=== PATIENT | female | born 1995 | race Caucasian/White ===

== ENCOUNTER 2024-07-05 09:47 | Outpatient (CLI) | payer BC, SELFPAY ==
--- NOTE | ~2024-07-05 | US_ITS ---
Pelvic ultrasound. Clinical History: First trimester , amenorrhea, establish dates and viability Technique: Realtime transabdominal scanning of the pelvis was performed. Color flow Doppler and Doppl er spectral analysis were performed. Findings: The uterus is anteverted, and contains an intrauterine gestation. Kremmling-rump length of 3.5 cm corresponds to an estimated gestational age of 10 weeks 3 days. Yolk sac present. heart rate is 163 bpm. The right ovary measures 3.7 x 2.0 x 2.7 cm. No significant right ovarian or adnexal mass is seen. The left ovary measures 3.1 x 1.8 x 2.9 cm. No significant left ovarian or adnexal mass is seen. There is no evidence of free fluid in the cul de sac. Impression: Live intrauterine gestation, with estimated gestational age of 10 weeks 3 days. heart rate is 1 63 bpm. Sonographic GURJIT is 01/29/2025. Reviewed, dictated and finalized at [facility]. Impression: Live intrauterine gestation, with estimated gestational age of 10 weeks 3 days. heart rate is 163 bpm. Sonographic GURJIT is 01/29/2025.
== END 2024-07-05 09:48 | disposition home or self-care (01) ==
PROVIDERS: PCP Nurse Practitioner Obstetrics & Gynecology; Visit Provider Nurse Practitioner Obstetrics & Gynecology
DX: N91.2 Amenorrhea, unspecified (principal)
CPT/HCPCS: 76801

== ENCOUNTER 2024-07-14 09:24 | Emergency (ER) | payer BC, SELFPAY ==
[2024-07-14 09:36] VITALS: BP 99/68; PULSE 69; RESP 17; TEMP 36.1; O2SAT 100
--- NOTE | 2024-07-14 09:49 | ED.URI ---
HPI - URI/Sore Throat General Chief Complaint: Upper Respiratory Infection Stated Complaint: sinus pressure Time Seen by Provider: 07/14/24 09:49 Source: patient Mode of arrival: ambulatory Limitations: no limitations History of Present Illness HPI Narrative: 29-year-old female presents with complaint nasal congestion, sinus pressure, postnasal drainage for 1 week. Afebrile. Patient is approximately 12 weeks . Unsure of what zsjl-yjq-hyccsda medication she can take to treat symptoms. No chest pain or shortness of breath. All systems reviewed and negative except as noted above. Related Data Home Medications ?Medication ?Instructions ?Recorded ?Confirmed ?Last Taken ?Type docosahexaenoic acid 200 mg mg PO 06/30/24 06/30/24 Unknown History capsule ( DHA) Allergies Allergy/AdvReac Type Severity Reaction Status Date / Time No Known Allergies Allergy Verified 07/14/24 09:30 Review of Systems Review of Systems: CONSTITUTIONAL: Denies fever, chills, or sweats. EYES: Denies visual changes, redness, or discharge. ENT: reports rhinorrhea, congestion, sinus pressure. Denies sore throat, or otalgia. CARDIOVASCULAR: Denies chest pain, palpitations, or edema. RESPIRATORY: Denies cough or dyspnea. GASTROINTESTINAL: Denies abdominal pain, nausea, vomiting, or diarrhea. GENITOURINARY: Denies dysuria or hematuria. SKIN: Denies rash or itching. MUSCULOSKELETAL: Denies back pain, joint pain, or myalgia. NEUROLOGIC: Denies headache, numbness, or weakness. PSYCHIATRIC: Denies anxiety or depression. All other systems reviewed are negative, except as documented in HPI. PMFSH Surgical History Surgical History Hx of rotator cuff surgery Hx of section Family History Family History Mother Hypertension Father Diabetes mellitus Grandparent Diabetes mellitus Heart problem Social History Social History Smoking status: Never smoker Alcohol intake: never Substance use: never Comments At time of signature, agree with nursing past medical, surgical, social and family history. There is no relevant family history pertinent to the presenting complaint. Exam Narrative: GENERAL: This is a well-nourished, well-developed patient, in no apparent distress. HEAD: normocephalic, atraumatic. EYES: PERRL. Sclera clear/white. Vision is grossly intact. EARS: External ears normal, auditory canals clear and without drainage, TMs normal without perforation. Hearing grossly intact. NOSE: External nose normal with congestion, purulent nasal drainage, erythema and swelling to bilateral nares. Maxillary sinus tenderness on palpation bilaterally. THROAT: Mucous membranes moist, Erythema with postnasal drainage. No swelling or exudates. NECK: Neck supple, non-tender without lymphadenopathy, masses or thyromegaly. CARDIOVASCULAR: Regular rate and rhythm without murmurs, gallops, or rubs. RESPIRATORY: Clear to auscultation. Breath sounds equal bilaterally. No wheezes, rales, or rhonchi. SKIN: warm, Dry, intact with no suspicious lesions or rash, good texture and turgor. NEURO: awake, alert, and oriented to person, place and time. There were no obvious focal neurologic abnormalities. EXTREMITIES: No joint tenderness, effusion, or edema noted. Course Course Level of Care: Express Care Visit Vital Signs Vital signs: Vital Signs Temperature 36.1 C L 07/14/24 09:36 Pulse Rate 69 07/14/24 09:36 Respiratory Rate 17 07/14/24 09:36 Blood Pressure 99/68 L 07/14/24 09:36 Pulse Oximetry 100 07/14/24 09:36 Oxygen Delivery Room Air 07/14/24 09:36 Temperature 36.1 C L 07/14/24 09:36 Pulse Rate 69 07/14/24 09:36 Respiratory Rate 17 07/14/24 09:36 Blood Pressure 99/68 L 07/14/24 09:36 Pulse Oximetry 100 07/14/24 09:36 Oxygen Delivery Room Air 07/14/24 09:36 Reviewed MDM - URI/Sore Throat MDM Narrative Medical decision making narrative: negative COVID and influenza test. Patient is alert, nontoxic. Lungs clear to auscultation. Twelve weeks , no complaints today. Will treat for bacterial sinusitis with amoxicillin. Discussed jpcw-mwh-qlhcqxd medications to treat symptoms That are safe with . Please be advised this is a medical document. It is intended for kpuo-uo-ugpl communication. It is written in medical language and may contain unfamiliar abbreviations or verbiage. Medical documents are intended to carry relevant information, facts as evident, and the clinical opinion of the practitioner at the time of the encounter. This report may have been done utilizing a voice recognition system. Attempts have been made to correct errors. However, there may be uncorrected grammatical, spelling, and recognition errors present. The file time of this note does not necessarily represent the time of service. Discharge Plan Discharge Clinical Impression: Acute bacterial sinusitis Patient Disposition: Home, Self-Care Condition: Stable Instructions: Antibiotic Form, Sinusitis (ED) Additional Instructions: your COVID and influenza test was negative today. Take antibiotic as prescribed until gone. Take qxij-xuf-culgqnx Claritin and Flonase and use as directed on packaging. May take knzs-lvi-uojtrzb Sudafed as long as blood pressure has been stable at OB appointments. Take Sudafed as directed on packaging. Drink at least 64 oz of water a day. Place cool mist humidifier in bedroom where the sleep. See your doctor if symptoms are not improving. Patient Language: Serbian Prescriptions: New amoxicillin 875 mg tablet 875 mg PO Q12H 7 Days Qty: 14 0RF No Action DHA 200 mg capsule PO Follow-up/Referrals: PHYSICIAN,MEDICAL OFFICE CLERK [Primary Care Provider] - Time of Disposition: 09:59
[2024-07-14 10:01] LABS: EDCOVIDSCREEN Negative (Negative); EDINFLUASCREEN Negative (Negative); EDINFLUBSCREEN Negative (Negative)
== END 2024-07-14 10:05 | disposition home or self-care (01) ==
PROVIDERS: Emergency Provider Nurse Practitioner Family; Referring Provider Emergency Medicine
DX: O99.511 Diseases of the respiratory system complicating pregnancy, first trimester (principal); Z3A.12 12 weeks gestation of pregnancy; J01.90 Acute sinusitis, unspecified; Z20.822 Contact with and (suspected) exposure to COVID-19
CPT/HCPCS: 87426; 87804; 99213; G0463

== ENCOUNTER 2024-07-28 13:38 | Outpatient (CLI) | payer BC, SELFPAY ==
[2024-07-28 14:28] LABS: Hemoglobin 12.5 g/dL (12.0-15.0); Mean Corpuscular HGB Conc 33.8 g/dl (32-36); Mean Corpuscular Hemoglobin 30.6 pg (26-34); Mean Corpuscular Volume 90.5 fl (80-100); Mean Platelet Volume 8.7 fl (7.4-10.4); Platelet Count Result 290 k/mm3 (150-375); Red Blood Count 4.09 M/mm3 (4.2-5.4); Red Cell Distribution Width 12.7 % (11.5-14.5)
[2024-07-28 14:54] LABS: Add Urine Microscopic? YES; Appearance Urine Clear (Clear); Bacteria Urine None Seen /hpf; Bilirubin Urine Negative (Negative); Blood Urine Negative (Negative); Color Urine Yellow (Yellow); Glucose Urine UA Negative (Negative); Ketones Urine Negative (Negative); Leukocyte Esterase Ur 1+ LEU/UL (Negative); Need Manual Microscopic Reviewed; Nitrate Urine Negative (Negative); Non Pathogenic Casts 0-2; Protein Urine Negative (Negative); RBC Urine 0-2 /hpf (0-2); Specific Grav Ur 1.009 (1.001-1.035); Squamous Epithelial Cell Urine None Seen /hpf (Few); Urobilinogen Urine 0.2 mg/dL (<2.0); WBC Urine 0-5 /hpf (0-3)
[2024-07-28 15:54] LABS: HIV 1/2 Ab P24 Ag Result Negative (Negative)
[2024-07-28 16:03] LABS: Thyroid Stimulating Hormone 0.688 uIU/mL (0.465-4.680)
[2024-07-28 19:13] LABS: Syphilis IgG/IgM Antibody Negative (Negative)
[2024-07-28 19:38] LABS: Rubella IgG Antibody 55.9 IU/ML
[2024-07-28 19:59] LABS: Hepatitis B Surface Anti Res Negative; Hepatitis C Virus Antibody Negative (Negative)
[2024-07-29 08:04] LABS: Varicella IgG Antibody 5.62 S/CO
[2024-07-30 11:04] LABS: Hematocrit 37.1 % (35.0-45.0); Hemoglobin 12.5 g/dL (11.7-15.5); MCH 31.2 pg (27.0-33.0); MCV 92.5 fL (80.0-100.0); RDW 12.8 % (11.0-15.0); Red Blood Cell Count 4.01 Million/uL (3.80-5.10)
== END 2024-07-28 13:39 | disposition home or self-care (01) ==
PROVIDERS: Visit Provider Obstetrics & Gynecology
DX: Z34.90 Encounter for supervision of normal pregnancy, unspecified, unspecified trimester (principal)
CPT/HCPCS: 36415; 81001; 83021; 84443; 85027; 86593; 86703; 86706; 86762; 86787; 86803; 86850; 86900; 86901; 87086; G0432

== ENCOUNTER 2024-10-18 14:37 | Outpatient (CLI) | payer BC, SELFPAY ==
--- OUTSIDE RECORDS SUMMARY | 2024-10-18 14:46 | XMS_ITS | Clinical Summary ---
Author Organization [facility] Address [address] [place] [address] Care Team Providers Care Sole Inker Name Role Phone Unavailable Primary Care Provider Unavailabl e Source Comments [facility],non-owned Affiliates and Associated Physician Practices is amultiple site organization consisting of ambulatory clinics and hospital sitesin [place], [place], [place] and [place]. This disclosure is being madepursuant to the Care Everywhere program and may not contain all information available regarding this patient. Last updated 18.[facility] Allergies No known active allergies Encounters Date Type Department Care Team Description 10/08/2024 7:30 AM CDT - 10/08/2024 11:59 PM CDT Hospital Encounter [facility] [address] [place] [id number] Prasanna Jansen MD Discharge Disposition: Home or Self Care 09/10/2024 7:30 AM CDT - 09/10/2024 11:59 PM CDT Hospital Encounter [facility] [address] [place] [phone] Jac Huynh DO Discharge Disposition: Home or Self Care from Last 3 Months Social History Tobacco Use Types Packs/Day Years Used Date Smoking Tobacco: Never Assessed Estimated Date of Delivery Comme nts Yes 01/28/2025 Based on Ultraso und Sex and Gender Information Value Date Recorded Sex Assigned at Not on file Legal Sex Female 8:04 AM CDT Gender Identity Not on file Sexual Orientation Not on file Plan of Treatment Health Maintenance Due Date Last Done Comments HIV SCREENING 02/25/2011 HEPATITIS C SCREENING 02/21/2014 DTAP/TDAP/TD VACCINES (1 - Tdap) 02/25/2015 HEPATITIS B VACCINE (1 of 3 - 19+ 3-dose series) 02/25/2015 PAP SMEAR 02/25/2017 COVID-19 VACCINE (1 - 2023-2 5 season) 2023 DEPRESSION SCREENING 04/21/2024 OB-ONE HOUR GLUCOSE 10/22/2024 OB-RHOGAM INJECTION 11/05/2024 INFLUENZA VACCINE (Season Ended) 2024 Respiratory Syncytial Virus (RSV) Vaccine Pt: or over 60 yrs (1 - Risk 1-dose series) 12/20/2024 ZOSTER VACCINE (1 of 2) 02/25/2046 HIB VACCINE Aged Out No longer eligi ble based on patient's age to complete this topic HPV VACCINE Aged Out No longer eligi ble based on patient's age to complete this topic MENINGOCOCCAL (Group B) VACC INE SHARED DECISION-MAKING Aged Out No longer eligibl e based on patient's age to complete this topic MENINGOCOCCAL GROUPS A/C/Y/W VACCINE Aged Out No longer eligible b ased on patient's age to complete this topic PNEUMOCOCCAL VACCINE Aged Out No long er eligible based on patient's age to complete this topic Procedures Procedure Name Priority Date/Time Associated Diagnosis Comments SONOGRAM - COMPLETE Routine 10/08/2024 7 :28 AM CDT Encounter for follow-up ultrasound of anatomy (HCC) with 23 completed weeks gestation (HCC) Third (HCC) Encounter for ultrasound to assess growth (HCC) SONOGRAM - COMPLETE Routine 09/10/2024 7 :30 AM CDT Encounter for anatomic survey (HCC) with 19 completed weeks gestation (HCC) Third (HCC) from Last 3 Months Results * SONOGRAM - COMPLETE (10/08/2024 7:28 AM CDT) Only the most recent of2 resultswithin the time period is included. Linked Results Indication ======== Incomplete Anatomy Survey History ====== OB History 3. Para 1 [id number] 1. live 2022. Gest. age 39 w + 0 d. Weight 3,203 g. Sex of child: male. Details: delivery 2. miscarriage 2023 Lab Tests Test Date Result NIPT low risk, female (per patient report) Maternal Assessment Physical Exam Height 152 cm, 5 ft 0 in. Weight 59 kg, 131 lb. Initial weight 54 kg, 119 lb. BMI 25.58 kg/m . Initial BMI 23.24 kg/m . Weight gain 5 kg, 12 lb Method ====== Transabdominal ultrasound. View: Sufficient ========= [place] . Number of fetuses: 1 Dating ====== Date Details Gest. age GURJIT Stated GURJIT 24 w + 0 d 01/28/2025 U/S 10/08/2024 based upon AC, BPD, Femur, HC 23 w + 5 d 01/30/2025 Assigned dating based on stated GURJIT, selected on 09/10/2024 24 w + 0 d 01/28/2025 General Evaluation Cardiac activity present. FHR 145 bpm. Presentation: cephalic Placenta: Placental site: posterior Umbilical cord: Cord vessels: 3 vessel cord. Insertion site: normal insertion Amniotic fluid: Amount of AF: normal. MVP 5.2 cm Biometry BPD 58.8 mm 24w 0d 45% Hadlock HC 210.4 mm 23w 1d 8% Hadlock AC 189.4 mm 23w 5d 31% Hadlock Femur 42.2 mm 23w 5d 30% Hadlock Humerus 42.2 mm 25w 3d 82% Chanelle HC / AC 1.11 Weight Calculation: EFW 618 g 28% Hadlock EFW (lb,oz) 1 lb 6 oz EFW by Hadlock ([id number]) appropriate Growth Overview Exam date GA BPD (mm) HC (mm) AC (mm) FL (mm) HL (mm) EFW (g) 09/10/2024 20w 0d 43.1 14% 164.1 10% 144.4 36% 32.5 47% 30.6 60% 316 37% 10/08/2024 24w 0d 58.8 45% 210.4 8% 189.4 31% 42.2 30% 42.2 82% 618 28% Anatomy The following structures appear normal: Heart / Thorax LVOT view. 3-vessel view. 4-rdavlj-loryeue view. Aortic arch view. Bicaval view. Ductal arch view. Great vessels. Abdomen Stomach. Kidneys. Bladder. Spine Lumbar spine. Sacral spine. The following structures were documented previously: Head / Neck Cranium. Lateral ventricles. Choroid plexus. Midline falx. Cavum septi pellucidi. Cerebellum. Cisterna magna. Thalami. Nuchal fold. Face Lips. Profile. Nose. Nasal bone. Orbits. Heart / Thorax 4-chamber view. RVOT view. Situs. Right lung. Left lung. Diaphragm. Abdomen Cord insertion. Bowel. Genitals. Spine Cervical spine. Thoracic spine. Extremities / Skeleton Arms. Hands. Legs. Feet. sex: female. Impression ========= Single, live, intrauterine at 24w 0d. The size is appropriate. The amniotic fluid volume is normal. No major malformations were seen within the limitations of ultrasound Comment ======== ultrasound alone cannot detect all structural, genetic, or functional , placental, or maternal abnormalities Follow-up ======== Follow up as clinically indicated. Coding ====== Procedures 90237: US Preg Uterus Follow Up [facility] 3Scan PACS Anatomical Region Laterality Modality Other 10/08/2024 7:28 AM CDT Markell Sohrt MD [facility] ORDERABLES Edited Result - Final from Last 3 Months Insurance [facility]
[2024-10-18 15:56] LABS: Hemoglobin 11.6 g/dL (12.0-15.0); Mean Corpuscular HGB Conc 33.1 g/dl (32-36); Mean Corpuscular Hemoglobin 30.3 pg (26-34); Mean Corpuscular Volume 91.4 fl (80-100); Mean Platelet Volume 9.4 fl (7.4-10.4); Platelet Count Result 251 k/mm3 (150-375); Red Blood Count 3.83 M/mm3 (4.2-5.4); Red Cell Distribution Width 11.9 % (11.5-14.5); White Blood Count 9.4 K/mm3 (4.5-10.0)
[2024-10-18 16:06] LABS: Glucose 1 Hour PP 50gm Dose 131 mg/dL
== END 2024-10-18 14:38 | disposition home or self-care (01) ==
PROVIDERS: Visit Provider Obstetrics & Gynecology
DX: Z34.90 Encounter for supervision of normal pregnancy, unspecified, unspecified trimester (principal)
CPT/HCPCS: 36415; 82947; 85027

== ENCOUNTER 2024-11-05 07:12 | Outpatient (CLI) | payer BC, SELFPAY ==
--- OUTSIDE RECORDS SUMMARY | 2024-11-05 07:15 | XMS_ITS | Clinical Summary ---
Author Organization [facility] Address [address] [place] [address] Care Team Providers Care Putty Glazer Name Role Phone Unavailable Primary Care Provider Unavailabl e Source Comments [facility],non-owned Affiliates and Associated Physician Practices is amultiple site organization consisting of ambulatory clinics and hospital sitesin [place], [place], [place] and [place]. This disclosure is being madepursuant to the Care Everywhere program and may not contain all information available regarding this patient. Last updated 18.[facility] Allergies No known active allergies Encounters Date Type Department Care Team Description 10/08/2024 7:30 AM CDT - 10/08/2024 11:59 PM CDT Hospital Encounter [facility] [address] [place] [address] Prasanna Jansen MD Discharge Disposition: Home or Self Care 09/10/2024 7:30 AM CDT - 09/10/2024 11:59 PM CDT Hospital Encounter [facility] [address] [place] [address] Jac Huynh DO Discharge Disposition: Home or [...] 19+ 3-dose series) 02/25/2015 PAP SMEAR 02/25/2017 HPV VACCINE (1 - 3-dose SCDM series) 02/25/2023 COVID-19 VACCINE (1 - 2023-2 5 season) 2023 DEPRESSION SCREENING 04/21/2024 OB-ONE HOUR GLUCOSE 10/22/2024 OB-TDAP CURRENT 10/29/2024 OB-RHOGAM INJECTION 11/05/2024 INFLUENZA VACCINE (#1) 2024 Respiratory Syncytial Virus (RSV) Vaccine Pt: [...] History ====== OB History 3. Para 1 [id number] 1. live 2022. Gest. age 39 w [...] 1 lb 6 oz EFW by Hadlock ([id number]) appropriate Growth Overview Exam date GA BPD (mm) HC (mm) AC (mm) FL (mm) HL (mm) EFW (g) 09/10/2024 20w 0d 43.1 14% 164.1 10% 144.4 36% 32.5 47% 30.6 60% 316 37% 10/08/2024 24w 0d 58.8 45% 210.4 8% 189.4 31% 42.2 30% 42.2 82% 618 28% Anatomy The following structures appear normal: Heart / Thorax LVOT view. 3-vessel view. 4-xshbum-bbwehxg view. Aortic arch view. Bicaval view. Ductal [...] up as clinically indicated. Coding ====== Procedures 86133: [place] Preg Uterus Follow Up [facility] [employer]aged [employer] PACS Anatomical Region Laterality Modality Other 10/08/2024 7:28 AM CDT Markell Short MD [facility] ORDERABLES Edited Result - Final from Last 3 Months Insurance [facility]
--- OUTSIDE RECORDS SUMMARY | 2024-11-05 07:15 | XMS_ITS | Clinical Summary ---
Author Organization [employer] Address [address] [place] [address] Care Team Providers Care Foreign Exchange Dealer Name Role Phone Patient, None Per Primary Care Provider Unavaila ble Source Comments This disclosure is being made pursuant to the [employer] program and maynot contain all information available regarding this patient.[employer] Allergies No known active allergies Medications No known medications Active Problems Problem Noted Date Diagnosed Date PCOS (polycystic ovarian syndrome) 03/28/2022 Family History Relation Name Status Comments Father Alive Mother Alive Social History Tobacco Use Types Packs/Day Years Used Date Smoking Tobacco: Never Smokeless Tobacco: Never Tobacco Cessation:Counseling Given: Not Answered Alcohol Use Standard Drinks/Week Comments Never 0 (1 standard drink = 0.6 oz pur e alcohol) Comments No Sex and Gender Information Value Date Recorded Sex Assigned at Not on file Legal Sex Female 12:25 PM CDT Gender Identity Not on file Sexual Orientation Not on file Last Filed Vital Signs Vital Sign Reading Time Taken Comments Blood Pressure 108/79 02/25/2024 2:48 PM CABLE SPLICER HELPER Pulse 120 02/25/2024 2:48 PM CABLE SPLICER HELPER Temperature 37.7 C (99.8 F) 02/25/2024 2:48 PM CABLE SPLICER HELPER Respiratory Rate 16 02/25/2024 2:48 PM CABLE SPLICER HELPER Oxygen Saturation 97% 02/25/2024 2:48 PM CABLE SPLICER HELPER Inhaled Oxygen Concentration - - Weight 56.2 kg (124 lb) 02/25/2024 2:48 PM CABLE SPLICER HELPER Height 170.2 cm (5' 7) 02/25/2024 2:48 PM CABLE SPLICER HELPER Body Mass Index 19.42 02/25/2024 2:48 PM CABLE SPLICER HELPER Plan of Treatment Health Maintenance Due Date Last Done Comments HPV 1996 Lab-Cholesterol Screening 1996 Lab-Hepatitis C Screening 1996 Annual Wellness Visit 02/25/2014 Hepatitis B Vaccine (1 of 3 - 19+ 3-dose series) 02/25/2015 Tetanus/Pertussis Vaccine Teen/Adult (1 - Tdap) 02/25/2015 Cervical Cancer Screening 02/25/2017 Pap Smear 02/25/2017 HPV Vaccine (9-26yo & Shared Decision 27-45yo) (1 - 3-dose SCDM series) 02/25/2023 COVID-19 Vaccine (1 - 2023-2 5 season) 2023 Influenza Vaccine (#1) 2024 Zoster (Shingles) Vaccine 50 + (1 of 2) 02/25/2046 RSV Adult (1 - 1-dose 75+ series) 02/25/2071 HIB Vaccine Aged Out No longer eligi ble based on patient's age to complete this topic Hepatitis A Vaccine Aged Out No longe r eligible based on patient's age to complete this topic IPV Vaccine Aged Out No longer eligi ble based on patient's age to complete this topic Meningococcal Conjugate Vaccine Aged Out No longer eligible based on patient's age to complete this topic Pneumococcal Vaccines 0-49 yo Aged Out No longer eligible based on patient's age to complete this topic RSV < 20 Months Aged Out No longer el igible based on patient's age to complete this topic Insurance O Care Teams Foreign Exchange Dealer Relationship Specialty Start Date End Date Patient, None Per PCP - General 11/11/22
--- OUTSIDE RECORDS SUMMARY | 2024-11-05 07:15 | XMS_ITS | Continuity of Care Document ---
Author Organization [facility] Address [address] [place] [address] Phone Care Team Providers Care Overlock Elastic Attacher Name Role Phone Kevin Devi MD Unavailable Unavailable Allergies, Adverse Reactions, Alerts Substance Reaction Status Criticality No Known Allergies Active No Inform ation Medications Medication Instructions Dosage Effective Dates (start - stop) Status Comments No Drug Therapy Prescribed Procedures Procedure Date Visual Field Examination(s) SCODI, Posterior Segment Eye Exam & Treatment Visual Field Examination(s) Eye Exam & Treatment Office/outpatient Visit, [facility] SCODI, Posterior Segment Office/outpatient Visit, [facility] Advance Directives Directive Yes / No Effective Date File Name No Information Encounters Encounter Description Practice Location Reason(s) For Visit Diagnoses Date Provider Providers Copied on Encounter [facility], [address], [place], [place], [id number], [place] tel:[phone] SEC Buddy MOTTA Professional Complete Exam (chief complaint) Glaucomatous cupping of optic disc of right eyeGlaucomatou s cupping of optic disc of left eye 6 Shandra Brown. [address] [facility], [facility] [address], [place], [place], [id number], [place]. tel:[phone] Referring Provider: Alan Barker OD, [employer] [address] [place] [address], [address]. 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 [address], [address] [place], [id number], [place]. tel:[phone] Referring Provider: Alan Barker OD, [employer] [address] [place] [address], [address]. tel:[phone] Office/outpa tient Visit, [facility], [address] [place] [address] [address], [place], [place], [id number], [place] tel:[phone] SEC Buddy [place] Professional Glaucoma, pressure check (chief complaint) Optic disc pathological cupping Dec-1 4 Wankum Kevin. [address], [address] [place], [address], [place]. tel:[phone] Referring Provider: Alan Barker OD, [employer] [address] [place] [address], [address]. tel:[phone] Office/outpa tient Visit, [facility], [address] [place] [address] [address], [place], [place], [id number], [place] tel:[phone] SEC Buddy [place] Professional Glaucoma, pressure check (chief complaint) Optic disc pathological cupping Sep-0 4 Wankum Kevin. [address], [address] [place], [place], [address], [place]. tel:[phone] Referring Provider: Alan Barker OD, [employer] [address] [place] [address], [address]. tel:[phone] [facility], [address], [place], [place], [id number], [place] tel:[phone] BRIAN Goodwin ÁNGELA Professional No Information 4 Shandra Brown. [address] [facility], [address], [place], [place], [id number], [place]. tel:[phone] Family History Family Member Type Diagnosis Age At Onset No Information Payers Payer name Insurance type Covered alliance party ID Authoriza tion(s) No Information Social [...] a glaucoma evaluation per Dr. Barker at [facility]. Functional Status Date Functional Assessmen [...]
[2024-11-05 08:15] LABS: Glucose Fasting Gestational 93 mg/dL (>/=95)
[2024-11-05 10:34] LABS: Glucose 1 Hour Gest 144 mg/dL (>/=180)
[2024-11-05 11:02] LABS: Glucose 2 Hour Gest 137 mg/dL (>/= 155)
[2024-11-05 11:45] LABS: Glucose 3 Hour Gest 123 mg/dL (>/=140)
== END 2024-11-05 07:13 | disposition home or self-care (01) ==
PROVIDERS: Visit Provider Obstetrics & Gynecology
DX: O99.810 Abnormal glucose complicating pregnancy (principal); Z3A.00 Weeks of gestation of pregnancy not specified
CPT/HCPCS: 36415; 82951; 82952

== ENCOUNTER 2024-11-12 11:45 | Outpatient (RCR) | payer BC, SELFPAY ==
[2024-11-12] MEDS: RHO(D) IMMUNE GLOBULIN 300 MCG/2 ML SYRINGE IM (12:20)
== END 2025-02-09 23:59 | disposition home or self-care (01) ==
LOC: ANHLAB 11:45
PROVIDERS: Visit Provider Nurse Practitioner Family
DX: Z34.90 Encounter for supervision of normal pregnancy, unspecified, unspecified trimester (principal); Z67.91 Unspecified blood type, Rh negative
CPT/HCPCS: 36415; 85461; 86850; 86900; 86901; 90384; 96372; J2790

== ENCOUNTER 2024-11-30 12:02 | Observation (INO) | payer BC, SELFPAY ==
[2024-11-30] VITALS (32 sets, daily range): BP systolic 92–105; BP diastolic 57–69; PULSE 76–112; O2SAT 92–100; BMI 26.4
--- NOTE | 2024-11-30 12:31 | LDADM ---
This patient, Yecenia Escobedo, was admitted to [facility] on 11/30/24 at 12:02. Patient/family oriented to hospital policies and general routines including ID bracelet, bed and alarms, visiting hours, pain management, procedures, bathroom and other care routines, personal items, smoking policy, room service/diet and guest tray routines, security routines, and visiting hours. Patient/Family are encouraged to report perceived risks to care and to ask questions if they do not understand what they are told or what they should do. See OBIX for further documentation.
--- OUTSIDE RECORDS SUMMARY | 2024-11-30 12:36 | XMS_ITS | Clinical Summary ---
Author Organization [employer] Address [address] [place] [address] Care Team Providers Care Supervisor Dairy Sanitation Name Role Phone Patient, None Per Primary Care Provider Unavaila ble Source Comments This disclosure is being made pursuant to the [employer] program and maynot contain all information available regarding this patient.[employer] Allergies No known active allergies Medications No [...] Comments Blood Pressure 108/79 02/25/2024 2:48 PM GERMINATION WORKER Pulse 120 02/25/2024 2:48 PM GERMINATION WORKER Temperature 37.7 C (99.8 F) 02/25/2024 2:48 PM GERMINATION WORKER Respiratory Rate 16 02/25/2024 2:48 PM GERMINATION WORKER Oxygen Saturation 97% 02/25/2024 2:48 PM GERMINATION WORKER Inhaled Oxygen Concentration - - Weight 56.2 kg (124 lb) 02/25/2024 2:48 PM GERMINATION WORKER Height 170.2 cm (5' 7) 02/25/2024 2:48 PM GERMINATION WORKER Body Mass Index 19.42 02/25/2024 2:48 PM GERMINATION WORKER Plan of Treatment Health Maintenance Due Date [...] complete this topic Insurance O Care Teams Supervisor Dairy Sanitation Relationship Specialty Start Date End Date Patient, None Per PCP - General 11/11/22
--- OUTSIDE RECORDS SUMMARY | 2024-11-30 12:36 | XMS_ITS | Clinical Summary ---
Author Organization [facility] Address [address] [place] [address] Care Team Providers Care Lunchroom Mother Name Role Phone Unavailable Primary Care Provider Unavailabl e Source Comments [facility],non-owned Affiliates and Associated Physician Practices is amultiple site organization consisting of ambulatory clinics and hospital sitesin [place], [place], [place] and [place]. This disclosure is being madepursuant to the Care Everywhere program and may not contain all information available regarding this patient. Last updated 18.[facility] Allergies No known active allergies Encounters Date Type Department Care Team Description 10/08/2024 7:30 AM CDT - 10/08/2024 11:59 PM CDT Hospital Encounter [facility] [address] [place] [address] Prasanna Jansen MD Discharge Disposition: Home or Self Care 09/10/2024 7:30 AM CDT - 09/10/2024 11:59 PM CDT Hospital Encounter [facility] [address] [place] [address] Jac Huynh DO Discharge Disposition: Home or [...] Orientation Not on file Plan of Treatment Upcoming Encounters Date Type Department Care Team (Late st Contact Info) Description 12/10/2024 9:[address] [facility] Maternal & Care [address] [place], [place] [phone] Health Maintenance Due Date Last Done Comments [...] History ====== OB History 3. Para 1 [id number] 1. live 2022. Gest. age 39 w [...] 1 lb 6 oz EFW by Hadlock ([id number]) appropriate Growth Overview Exam date GA BPD (mm) HC (mm) AC (mm) FL (mm) HL (mm) EFW (g) 09/10/2024 20w 0d 43.1 14% 164.1 10% 144.4 36% 32.5 47% 30.6 60% 316 37% 10/08/2024 24w 0d 58.8 45% 210.4 8% 189.4 31% 42.2 30% 42.2 82% 618 28% Anatomy The following structures appear normal: Heart / Thorax LVOT view. 3-vessel view. 9-xlhqxz-mcdgsnk view. Aortic arch view. Bicaval view. Ductal [...] up as clinically indicated. Coding ====== Procedures [id number]: [place] Preg Uterus Follow Up . [facility] reMail PACS Anatomical Region Laterality Modality Other 10/08/2024 7:28 AM CDT Markell Short MD [facility] ORDERABLES Edited Result - Final from Last 3 Months Insurance [employer]
[2024-11-30 12:38] LABS: Add Urine Microscopic? YES; Appearance Urine Clear (Clear); Glucose Urine UA Negative (Negative); Leukocyte Esterase Ur 2+ LEU/UL (Negative); Nitrate Urine Negative (Negative); Non Pathogenic Casts 0-2; Specific Grav Ur 1.009 (1.001-1.035)
[2024-11-30] MEDS: TERBUTALINE SULFATE 1 MG/ML VIAL 0.25 MG SUB-Q (14:17)
[2024-11-30] MEDS: AMOXICILLIN 500 MG CAPSULE PO (14:20)
--- NOTE | 2024-12-21 11:20 | PM.OBTRLD ---
OB - Triage/Final Diagnosis Visit Information Comments/Additional reasons for admission: I have assessed the risk for this patient, Yecenia Escobedo, and determined that she would benefit from observation care. Evaluation Laboratory results: Laboratory Tests 11/30/24 12:15 Urine Color Yellow Urine Appearance Clear Urine pH 7.5 Ur Specific [place] 1.009 Urine Protein Negative Urine Glucose (UA) Negative Urine Ketones Negative Ur Blood (Man) Negative Urine Nitrate Negative Urine Bilirubin Negative Urine Urobilinogen 0.2 Leukocyte Esterase Rfl 2+ H Urine RBC 0-2 Urine WBC 6-10 H Ur Squamous Epith Cells Occasional Urine Bacteria 1+ H Urine Casts 0-2 Final Diagnosis (1) contractions: Code(s): O47.00 - False labor before 37 completed weeks of gestation, unspecified trimester Status: Acute (2) Urinary symptom or sign: Code(s): R39.9 - Unspecified symptoms and signs involving the genitourinary system Status: Acute
== END 2024-11-30 16:10 | disposition home or self-care (01) ==
PROVIDERS: Admitting Provider Obstetrics & Gynecology; Visit Provider Obstetrics & Gynecology
DX: O47.00 False labor before 37 completed weeks of gestation, unspecified trimester (principal); R39.9 Unspecified symptoms and signs involving the genitourinary system; Z3A.31 31 weeks gestation of pregnancy
CPT/HCPCS: 81001; 87086; 96372; A9270; G0378; G0379; J3105

== ENCOUNTER 2024-12-10 07:41 | Outpatient (CLI) | payer BC, SELFPAY ==
--- OUTSIDE RECORDS SUMMARY | 2016-04-11 03:30 | XMS_ITS | Continuity of Care Document ---
Author Organization [facility] Address [address] [place] [address] Phone Care Team Providers Care Spine Nurse Name Role Phone Kevin Devi MD Unavailable [...] [facility] SC[facility]I, Posterior Segment Office/outpatient Visit, [facility] Advance Directives Directive Yes / No Effective Date File Name No Information Encounters Encounter Description Practice Location Reason(s) For Visit Diagnoses Date Provider Providers Copied on Encounter [facility], [address], [place], [place], [id number], [place] tel:[phone] SEC Buddy MOTTA Professional Complete Exam (chief complaint) Glaucomatous cupping of optic disc of right eyeGlaucomatou s cupping of optic disc of left eye 6 Shandra Brown. [address] [facility], [facility] [address], [place], [place], [address], [place]. tel:[phone] Referring Provider: Alan Barker OD, [employer] [address] [place] [address], [address]. 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 [address], [address] [place], [address], [place]. tel:[phone] Referring Provider: Alan Barker OD, [employer] [address] [place] [address], [address]. tel:[phone] Office/outpa tient Visit, [facility], [address] [place] [address] [address], [place], [place], [id number], [place] tel:[phone] SEC [place] Professional Glaucoma, pressure check (chief complaint) Optic disc pathological cupping Dec-1 4 Wankum Kevin. [address], [address] [place], [address], [place]. tel:[phone] Referring Provider: Alan Barker OD, [employer] [address] [place] [address], [address]. tel:[phone] Office/outpa tient Visit, [facility], [address] [place] [address] [address], [place], [place], [address], [place] tel:[phone] SEC [place] Professional Glaucoma, pressure check (chief complaint) Optic disc pathological cupping Sep-0 4 Wankum Kevin. [address], [address] [place], [address], [place]. tel:[phone] Referring Provider: Alan Barker OD, [employer] [address] [place] [address], [address]. tel:[phone] [facility], [address], [place], [place], [address], [place] tel:[phone] BRIAN Goodwin ÁNGELA Professional No Information 4 Shandra Brown. [address] [facility], [address], [place], [place], [address], [place]. tel:[phone] Family History Family Member Type Diagnosis Age At Onset No Information Payers Payer name Insurance type Covered constitution party ID Authoriza tion(s) No Information Social [...] a glaucoma evaluation per Dr. Barker at [facility]. Functional Status Date Functional Assessmen t No [...]
--- OUTSIDE RECORDS SUMMARY | 2024-12-10 07:44 | XMS_ITS | Clinical Summary ---
Author Organization [facility] Address [address] [facility] [place] [place] [address] Care Team Providers Care Marketing Producer Name Role Phone Unavailable Primary Care Provider Unavailabl e Source Comments [facility],non-owned Affiliates and Associated Physician Practices is amultiple site organization consisting of ambulatory clinics and hospital sitesin [place], [place], [place] and [place]. This disclosure is being madepursuant to the Care Everywhere program and may not contain all information available regarding this patient. Last updated 18.[facility] Allergies No known active allergies Encounters Date Type Department Care Team Description 12/10/2024 9:45 AM CDT Hospital Encounter [facility] Maternal & Care [address] [place] [address] Danielle Mireles MD 10/08/2024 7:30 AM CDT - 10/08/2024 11:59 PM CDT Hospital Encounter [facility] [address] [place] [address] Prasanna Jansen MD Discharge Disposition: Home or Self Care 09/10/2024 7:30 AM CDT - 09/10/2024 11:59 PM CDT Hospital Encounter [facility] [address] [place] [phone] Jac Huynh DO Discharge Disposition: Home or [...] Contact Info) Description 12/10/2024 9:45 AM CDT Hospital Encounter [facility]aternal [facility] Care [address] [phone] Danielle Mireles MD [address] [place] [phone] Health Maintenance Due Date Last Done Comments [...] History ====== OB History 3. Para 1 [id number] 1. live 2022. Gest. age 39 w [...] 1 lb 6 oz EFW by Hadlock ([id number]) appropriate Growth Overview Exam date GA BPD (mm) HC (mm) AC (mm) FL (mm) HL (mm) EFW (g) 09/10/2024 20w 0d 43.1 14% 164.1 10% 144.4 36% 32.5 47% 30.6 60% 316 37% 10/08/2024 24w 0d 58.8 45% 210.4 8% 189.4 31% 42.2 30% 42.2 82% 618 28% Anatomy The following structures appear normal: Heart / Thorax LVOT view. 3-vessel view. 4-qntfxl-ydcsdwl view. Aortic arch view. Bicaval view. Ductal [...] up as clinically indicated. Coding ====== Procedures [id number]: [place] [facility] An[facility] Laterality Modality Other 10/08/2024 7:28 AM CDT Markell Short MD [facility] ORDERABLES Edited Result - Final from Last 3 Months Insurance [employer]
--- OUTSIDE RECORDS SUMMARY | 2024-12-10 07:44 | XMS_ITS | Clinical Summary ---
Author Organization [employer] Address [address] [place] [address] Care Team Providers Care Regional Marketing Director Name Role Phone Patient, None Per Primary Care Provider Unavaila ble Source Comments This disclosure is being made pursuant to the [employer] program and maynot contain all information available regarding this patient.[employer] Allergies No known active allergies Medications No [...] Comments Blood Pressure 108/79 02/25/2024 2:48 PM BURIAL AGENT Pulse 120 02/25/2024 2:48 PM BURIAL AGENT Temperature 37.7 C (99.8 F) 02/25/2024 2:48 PM BURIAL AGENT Respiratory Rate 16 02/25/2024 2:48 PM BURIAL AGENT Oxygen Saturation 97% 02/25/2024 2:48 PM BURIAL AGENT Inhaled Oxygen Concentration - - Weight 56.2 kg (124 lb) 02/25/2024 2:48 PM BURIAL AGENT Height 170.2 cm (5' 7) 02/25/2024 2:48 PM BURIAL AGENT Body Mass Index 19.42 02/25/2024 2:48 PM BURIAL AGENT Plan of Treatment Health Maintenance Due Date [...] complete this topic Insurance O Care Teams Regional Marketing Director Relationship Specialty Start Date End Date Patient, None Per PCP - General 11/11/22
[2024-12-10 08:10] LABS: Hematocrit 33.1 % (37.0-47.0); Hemoglobin 10.9 g/dL (12.0-15.0); Mean Corpuscular HGB Conc 32.9 g/dl (32-36); Mean Corpuscular Hemoglobin 29.4 pg (26-34); Mean Corpuscular Volume 89.2 fl (80-100); Platelet Count Result 248 k/mm3 (150-375); Red Blood Count 3.71 M/mm3 (4.2-5.4); White Blood Count 9.0 K/mm3 (4.5-10.0)
[2024-12-10 09:11] LABS: HIV 1/2 Ab P24 Ag Result Negative (Negative)
--- OUTSIDE RECORDS SUMMARY | 2024-12-10 09:45 | XMS_ITS | Encounter Summary ---
Author Organization [facility] Address [address] [place] [address] Care Team Providers Care Business Continuity Global Director Name Role Phone Unavailable Primary Care Provider Unavailabl e Reason for Referral * (Routine) - Open Specialty Diagnoses / Procedures Referred By Yamini t Referred To Contact Diagnoses Third (HCC) with 32 completed weeks gestation (HCC) Encounter for ultrasound to assess growth (HCC) Poor growth affecting management of mother in second trimester, single or unspecified fetus (HCC) Procedures Sonogram - Complete Markell Rodriguez MD [address] [facility] [address] [facility] [address] [place] [address] Phone: tel: fax: Referral ID Status Reason Start Date Expiration Date Visits Re quested Visits Authorized [id number] Open 11/30/2024 11/30/2025 1 1 Reason for Visit * Reason Comments Ultrasound Encounter Details Date Type Department Care Team (Late st Contact Info) Description 12/10/2024 9:45 AM CDT Hospital Encounter [facility] Maternal & Care [address] [phone] Danielle Mireles MD [address] [facility] [address] [place] [address] Social History Tobacco Use Types Packs/Day Years Used Date Smoking Tobacco: Never Assessed Estimated Date of Delivery Comme nts Yes 01/28/2025 Based on Ultraso und Sex and Gender Information Value Date Recorded Sex Assigned at Not on file Legal Sex Female 8:04 AM CDT Gender Identity Not on file Sexual Orientation Not on file documented as of this encounter Plan of Treatment Scheduled Orders Name Type Priority Associated Diagnoses Orde r Schedule Sonogram - Complete [facility] Routine Third (HCC) with 32 completed weeks gestation ([facility]) Encounter for ultrasound to assess growth (HCC) SGA (small for gestational age) ([facility]) 1 Occurrences starting 11/30/2024 until 11/30/2025 documented as of this encounter Visit Diagnoses Diagnosis Third (HCC)- Primary state, incidental with 32 completed weeks gestation ([facility]) Encounter for ultrasound to assess growth (HCC) SGA (small for gestational age) ([facility]) Bhrmc-fhv-habeq without mention of malnutrition, unspecified (weight) documented in this encounter
[2024-12-10 09:52] LABS: Syphilis IgG/IgM Antibody Non-Reactive (Nonreactive)
== END 2024-12-10 07:42 | disposition home or self-care (01) ==
LOC: ANHLAB 07:42
PROVIDERS: Visit Provider Nurse Practitioner Family
DX: Z34.90 Encounter for supervision of normal pregnancy, unspecified, unspecified trimester (principal); Z3A.00 Weeks of gestation of pregnancy not specified
CPT/HCPCS: 36415; 85027; 86593; 86703; G0432

== ENCOUNTER 2024-12-27 15:06 | Observation (INO) | payer BC, SELFPAY ==
--- OUTSIDE RECORDS SUMMARY | 2016-04-11 03:30 | XMS_ITS | Continuity of Care Document ---
Author Organization [facility] Address [address] [place] [address] Phone Care Team Providers [employer] Consultant Name Role Phone Kevin Devi MD Unavailable Unavailable Allergies, Adverse Reactions, Alerts Substance Reaction Status Criticality No Known Allergies Active No Inform ation Medications Medication Instructions Dosage Effective Dates (start - stop) Status Comments No Drug Therapy Prescribed Procedures Procedure Date Visual Field Examination(s) SCODI, Posterior Segment Eye Exam & Treatment Visual Field Examination(s) Eye Exam & Treatment Office/outpatient Visit, [facility] SCODI, Posterior Segment Office/outpatient Visit, [facility] Advance Directives Directive Yes / No Effective Date File Name No Information Encounters Encounter Description Practice Location Reason(s) For Visit Diagnoses Date Provider Providers Copied on Encounter [facility], [address], [place], [place], [id number], [place] tel:[phone] SEC Buddy MOTTA Professional Complete Exam (chief complaint) Glaucomatous cupping of optic disc of right eyeGlaucomatou s cupping of optic disc of left eye 6 Shandra Brown. [address] [facility], [facility] [address], [place], [place], [address], [place]. tel:[phone] Referring Provider: Alan Barker OD, [employer] [address] [place] [address], [address]. 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 [address], [address] [place], [address], [place]. tel:[phone] Referring Provider: Alan Barker OD, [employer] [address] [place] [address], [address]. tel:[phone] Office/outpa tient Visit, [facility], [address] [place] [address] [address], [place], [place], [address], [place] tel:[phone] SEC [place] Professional Glaucoma, pressure check (chief complaint) Optic disc pathological cupping Dec-1 4 Wankum Kevin. [address], [address] [place], [address], [place]. tel:[phone] Referring Provider: Aaln Barker OD, [employer] [address] [place] [address], [address]. tel:[phone] Office/outpa tient Visit, [facility], [address] [place] [address] [address], [place], [place], [address], [place] tel:[phone] [place] Professional Glaucoma, pressure check (chief complaint) Optic disc pathological cupping Sep-0 4 Wankum Kevin. [address], [address] [place], [address], [place]. tel:[phone] Referring Provider: Alan Barker OD, [employer] [address] [place] [address], [address]. tel:[phone] [facility], [address], [place], [place], [address], [place] tel:[phone] BRIAN Goodwin ÁNGELA Professional No Information 4 Shandra Brown. [address] [facility], [address], [place], [place], [address], [place]. tel:[phone] Family History Family Member Type Diagnosis Age At Onset No Information Payers Payer name Insurance type Covered green party ID Authoriza tion(s) No Information Social History Type Description Quantity Date Captured Comments Alcohol Use Details No Caffeine Use Details Tobacco Use Status Never smoked tobacco 2015 Smoking Status Never smoker Non-Smoking Tobacco Use Details : No Details Available : No Details Available Sex Female Chief Complaint And Reason For Visit From encounter dated '04/11/2016 08:30'. Complete Exam (chief complaint). Description: The 21 year old female presents for Complete Exam in the right eye and left eye. + 24-2 HVF and ON OCT. Hx of Cupping. Pt states no VA complaints. Pt states she woke up yesterday and OU were red, no pain or discomfort. Pt used OTC allery gtts to no avail. Reason For Referral Reason For Referral No Information History Of Present Illness Encounter Date Complaint History Of Prese nt Illness Complete Exam The 21 year old female presents for Complete Exam in the right eye and left eye. + 24-2 HVF and ON OCT. Hx of Cupping. Pt states no VA complaints. Pt states she woke up yesterday and OU were red, no pain or discomfort. Pt used OTC allery gtts to no avail. Blurry vision The 20 year old female presents for a Complete Glaucoma evaluation w/ IOP check and VF 24-2. Patient denies any v/a changes at this time OU. Patient denies any pain or discomfort at this time OU. Patient not taking any gtts. Glaucoma, pressure check Patient presents for a 3 month IOP check with an OCT. Glaucoma, pressure check Patient presents for a glaucoma evaluation per Dr. Barker at [facility]. Functional Status Date Functional Assessmen t No Information Medications Administered Medication Instructions Dosage Effective Dates (start - stop) Status Comments No Drug Therapy Prescribed Instructions Date Instruction Additional Infor lo Glaucomatous cupping of optic disc of left eye - Educational material provided Related to Glaucomatous cupping of optic disc of left eye Follow up - Return i n 2 years with Kevin Devi M.D. for Complete Exam , IOP check with VF , OCT (ON). Impression/Plan - Di scussed diagnosis in detail with patient. IOP within normal range, no change OCT ON and 24-2 visual gonzáles. Will continue to monitor. Return to clinic in 2 year for complete exam with OCT ON and 24-2 visual gonzáles or sooner with any problems. Return in 1 year jeff Devi M.D. for Complete Exam. 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 for Complete Exam. 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 No treatment needed at this time. Will continue to monitor. Normal visual gonzáles. Return in 1 year for complete exam with 24-2 visual gonzáles and OCT ON or sooner with any problems. 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 for Complete Exam , IOP check , Visual Field (24-2) , OCT (ON) Related to Optic disc pathological cupping - Discussed diagnosi s with patient. Patient understands no treatment is needed at this time. Return in 12 months for IOP check, 24-2, and OCT or sooner with any problems. OCT performed today as baseline. Related to Optic disc pathological cupping Optic disc pathologi jimmy cupping - Educational material given Related to Optic disc pathological cupping - RTC in 2 months fo r an early an IOP check and OCT ON Related to See list of assessments above - Discussed glaucoma in detail with pt. IOP normal with cupping. VF normal. Will continue to monitor. RTC in 2 months for an early an IOP check and OCT ON. Educational materials provided:about today's exam. Related to See list of assessments above Assessments Type Assessment Date assessment Glaucomatous cupping of optic di sc of right eye assessment Glaucomatous cupping of optic di sc of left eye Patient Care Teams Name Effective Dates (start - stop) Status Members No Information
--- NOTE | 2024-12-27 15:06 | OBADM ---
This patient, Yecenia Escobedo, admitted to the OB room OB Post 116 for observation. Patient/family oriented to hospital policies and general routines including ID bracelet, bed and alarms, visiting hours, pain management, procedures, bathroom and other care routines, personal items, smoking policy, room service/diet, and visiting hours. Patient/Family are encouraged to report perceived risks to care and to ask questions if they do not understand what they are told or what they should do.
--- OUTSIDE RECORDS SUMMARY | 2024-12-27 15:13 | XMS_ITS | Clinical Summary ---
Author Organization [employer] Address [address] [place] [address] Care Team Providers Care Daytime Caregiver Name Role Phone Patient, None Per Primary Care Provider Unavaila ble Source Comments This disclosure is being made pursuant to the [employer] program and maynot contain all information available regarding this patient.[employer] [facility] Allergies No known active allergies Medications No [...] Comments Blood Pressure 108/79 02/25/2024 2:48 PM CITY MAIL CARRIER Pulse 120 02/25/2024 2:48 PM CITY MAIL CARRIER Temperature 37.7 C (99.8 F) 02/25/2024 2:48 PM CITY MAIL CARRIER Respiratory Rate 16 02/25/2024 2:48 PM CITY MAIL CARRIER Oxygen Saturation 97% 02/25/2024 2:48 PM CITY MAIL CARRIER Inhaled Oxygen Concentration - - Weight 56.2 kg (124 lb) 02/25/2024 2:48 PM CITY MAIL CARRIER Height 170.2 cm (5' 7) 02/25/2024 2:48 PM CITY MAIL CARRIER Body Mass Index 19.42 02/25/2024 2:48 PM CITY MAIL CARRIER Plan of Treatment Health Maintenance Due Date [...] COVID-19 Vaccine (1 - 2023-2 5 season) 2024 Influenza Vaccine (#1) 2024 Zoster (Shingles) Vaccine [...] complete this topic Insurance O Care Teams Daytime Caregiver Relationship Specialty Start Date End Date Patient, None Per PCP - General 11/11/22
--- OUTSIDE RECORDS SUMMARY | 2024-12-27 15:13 | XMS_ITS | Clinical Summary ---
Author Organization [facility] Address [address] [place] [address] Care Team Providers Care Grass Farmer Name Role Phone Unavailable Primary Care Provider Unavailabl e Source Comments [facility],non-owned Affiliates and Associated Physician Practices is amultiple site organization consisting of ambulatory clinics and hospital sitesin [place], [place], [place] and [place]. This disclosure is being madepursuant to the Care Everywhere program and may not contain all information available regarding this patient. Last updated 18.[facility] Allergies No known active allergies Encounters Date Type Department Care Team Description 12/10/2024 9:36 AM CDT - 12/10/2024 11:59 PM CDT Hospital Encounter [facility] [address] [place] [id number] Danielle Mireles MD Discharge Disposition: Home or Self Care 10/08/2024 7:30 AM CDT - 10/08/2024 11:59 PM CDT Hospital Encounter [facility] [address] [place] [id number] Prasanna Jansen MD Discharge Disposition: Home or Self Care from [...] Care Team (Late st Contact Info) Description 01/07/2025 7:30 AM CDT Hospital Encounter [facility] [address] [place], [place] [id number] Health Maintenance Due Date Last Done Comments HIV SCREENING 02/25/2011 HEPATITIS C SCREENING 02/21/2014 DTAP/TDAP/TD VACCINES (1 - Tdap) 02/25/2015 HEPATITIS B VACCINE (1 of 3 - 19+ 3-dose series) 02/25/2015 PAP SMEAR 02/25/2017 HPV VACCINE (1 - 3-dose SCDM series) 02/25/2023 DEPRESSION SCREENING 04/21/2024 OB-ONE HOUR GLUCOSE 10/22/2024 OB-TDAP CURRENT 10/29/2024 OB-RHOGAM INJECTION 11/05/2024 COVID-19 VACCINE (1 - 2023-2 5 season) 2024 INFLUENZA VACCINE (#1) 2024 02/13/2016 Respiratory Syncytial Virus (RSV) Vaccine Pt: or over 60 yrs (1 - Risk 1-dose series) 12/20/2024 OB-GROUP B STREP SCREEN 12/24/2024 ZOSTER VACCINE (1 of 2) 02/25/2046 HIB [...] Associated Diagnosis Comments SONOGRAM - COMPLETE Routine 12/10/2024 9 :46 AM CDT Third (HCC) with 32 completed weeks gestation (HCC) Encounter for ultrasound to assess growth (HCC) SGA (small for gestational age) ([facility]) SONOGRAM - COMPLETE Routine 10/08/2024 7 :28 AM CDT Encounter for follow-up ultrasound of anatomy (HCC) with 23 completed weeks gestation (HCC) Third (HCC) Encounter for ultrasound to assess growth (HCC) from Last 3 Months Results * Sonogram - Complete (12/10/2024 9:46 AM CDT) Only the most recent of2 resultswithin the time period is included. Linked Results Indication ======== Small for dates History ====== OB History 3. Para 1 [id number] 1. live 2022. Gest. age 39 w + 0 d. Weight 3,203 g. Sex of child: male. Details: delivery 2. miscarriage 2023 Lab Tests Test Date Result NIPT low risk, female (per patient report) Maternal Assessment Physical Exam Height 152 cm, 5 ft 0 in. Weight 63 kg, 138 lb. Initial weight 54 kg, 119 lb. BMI 26.95 kg/m . Initial BMI 23.24 kg/m . Weight gain 9 kg, 19 lb Method ====== Transabdominal ultrasound. View: Sufficient ========= [place] . Number of fetuses: 1 Dating ====== Date Details Gest. age GURJIT Stated GURJIT 33 w + 0 d 01/28/2025 U/S 12/10/2024 based upon AC, BPD, Femur, HC 32 w + 1 d 02/03/2025 Assigned dating based on stated GURJIT, selected on 09/10/2024 33 w + 0 d 01/28/2025 General Evaluation Cardiac activity present. FHR 148 bpm. Presentation: cephalic Placenta: Placental site: posterior Amniotic fluid: Amount of AF: normal. MVP 4.2 cm. HAROLDO 13.8 cm. Q1 3.4 cm, Q2 2.2 cm, Q3 4.2 cm, Q4 4.0 cm Biometry BPD 81.8 mm 32w 6d 40% Hadlock HC 289.1 mm 31w 6d 3% Hadlock AC 276.2 mm 31w 5d 16% Hadlock Femur 61.8 mm 32w 0d 16% Hadlock Humerus 55.9 mm 32w 4d 48% Chanelle HC / AC 1.05 Weight Calculation: EFW 1,862 g 15% Hadlock EFW (lb,oz) 4 lb 2 oz EFW by Hadlock ([id number]) appropriate Growth Overview Exam date GA BPD (mm) HC (mm) AC (mm) FL (mm) HL (mm) EFW (g) 09/10/2024 20w 0d 43.1 14% 164.1 10% 144.4 36% 32.5 47% 30.6 60% 316 37% 10/08/2024 24w 0d 58.8 45% 210.4 8% 189.4 31% 42.2 30% 42.2 82% 618 28% 12/10/2024 33w 0d 81.8 40% 289.1 3% 276.2 16% 61.8 16% 55.9 48% 1862 15% Anatomy The following structures appear normal: Abdomen Stomach. Kidneys. Bladder. sex: female. Impression ========= Single, live, intrauterine at 33w0d The size is appropriate, but with a decreased growth trajectory No major malformations were seen within the limits of ultrasound The amniotic fluid volume is normal Comment ======== ultrasound alone cannot detect all structural, genetic, or functional , placental, or maternal abnormalities Follow-up ======== Ultrasound in three weeks to reassess growth Coding ====== Procedures [id number]: US Preg Uterus Follow Up [facility] WriteLatex PACS Anatomical Region Laterality Modality Other 12/10/2024 9:46 AM CDT Markell Short MD [facility] ORDERABLES Edited Result - Final from Last 3 Months Insurance [facility]
[2024-12-27 15:30] VITALS: BP 103/71; PULSE 88
[2024-12-27 15:35] VITALS: BMI 27.5
[2024-12-27 15:39] LABS: Add Urine Microscopic? YES; Appearance Urine Clear (Clear); Glucose Urine UA Negative (Negative); Leukocyte Esterase Ur 3+ LEU/UL (Negative); Nitrate Urine Negative (Negative); Non Pathogenic Casts 0-2; Specific Grav Ur 1.004 (1.001-1.035)
[2024-12-27 15:45] VITALS: BP 105/70; PULSE 89
[2024-12-27 16:00] VITALS: BP 103/70; PULSE 88
[2024-12-27 16:15] VITALS: BP 104/71; PULSE 88
[2024-12-27 16:22] VITALS: BP 105/70; PULSE 89
--- NOTE | 2025-01-05 16:10 | P.PNOB_ITS ---
OB - Triage/Final Diagnosis Visit Information Comments/Additional reasons for admission: I have assessed the risk for this patient, Yecenia Escobedo, and determined that she would benefit from observation care. Evaluation Laboratory results: Laboratory Tests 12/27/24 15:23 Urine Color Yellow Urine Appearance Clear Urine pH 6.5 Ur Specific [place] 1.004 Urine Protein Negative Urine Glucose (UA) Negative Urine Ketones Negative Ur Blood (Man) Negative Urine Nitrate Negative Urine Bilirubin Negative Urine Urobilinogen 1.0 Ur Leukocyte Esterase 3+ H Urine RBC 0-2 Urine WBC 21-50 H Ur Squamous Epith Cells Few Urine Bacteria 1+ H Urine Casts 0-2 Final Diagnosis (1) False labor: Code(s): O47.9 - False labor, unspecified Status: Acute
== END 2024-12-27 16:25 | disposition home or self-care (01) ==
PROVIDERS: Admitting Provider Obstetrics & Gynecology; Visit Provider Obstetrics & Gynecology
DX: O47.03 False labor before 37 completed weeks of gestation, third trimester (principal); Z3A.35 35 weeks gestation of pregnancy
CPT/HCPCS: 59025; 81001; G0378; G0379

== ENCOUNTER 2025-02-01 02:39 | Inpatient (IN) | payer BC, SELFPAY ==
[2025-02-01] VITALS (111 sets, daily range): BP systolic 80–118; BP diastolic 47–83; PULSE 58–129; RESP 13–21; TEMP 36.1–37.3; O2SAT 96–100; BMI 28.8
[2025-02-01] MEDS: LACTATED RINGERS 1,000 ML 125 ML IV CONT (03:44)
[2025-02-01 03:57] LABS: Hematocrit 39.9 % (37.0-47.0); Hemoglobin 13.2 g/dL (12.0-15.0); Immature Granulocyte Percent A 0.6 % (0-0.5); Lymphocytes Absolute Auto 2.61 K/mm3 (0.9-3.2); Mean Corpuscular HGB Conc 33.1 g/dl (32-36); Mean Corpuscular Hemoglobin 29.1 pg (26-34); Mean Corpuscular Volume 88.1 fl (80-100); Nucleated Red Blood Cells Absolute Auto 0.000 K/mm3 (0.0-0.012); Nucleated Red Blood Cells Perc 0.0 % (0.0-0.2); Platelet Count Result 262 k/mm3 (150-375); Red Blood Count 4.53 M/mm3 (4.2-5.4); White Blood Count 10.7 K/mm3 (4.5-10.0)
--- NOTE | 2025-02-01 04:04 | LDADM ---
This patient, Yecenia Escobedo, was admitted to Labor/Delivery/Recovery 104 on 02/01/25 at 02:39. Plans for labor, pain management and were discussed with patient. Patient/family oriented to hospital policies and general routines including ID bracelet, bed and alarms, visiting hours, pain management, procedures, bathroom and other care routines, personal items, smoking policy, room service/diet and guest tray routines, security routines, and visiting hours. Patient/Family are encouraged to report perceived risks to care and to ask questions if they do not understand what they are told or what they should do. See OBIX for further documentation.
[2025-02-01] MEDS: LACTATED RINGERS 1,000 ML 999 ML IV CONT ×2 (04:12→05:11)
--- NOTE | 2025-02-01 04:19 | WPDANESEPPF ---
Anes - Initial Pre Proc Eval Procedure: Labor epidural Date/Time: 02/01/25 04:19 Surgeon: Markell Brown MD Pre Op Diagnosis: Labor pain Patient Data Age: 29 Gender: F Height: 1.52 m Weight: 66.8 kg Last Vital Signs Pulse 75 02/01/25 03:47 BP 114/80 02/01/25 03:47 Pulse Ox 100 02/01/25 04:17 O2 Del Method Room Air 02/01/25 03:48 Allergies Allergy/AdvReac Type Severity Reaction Status Date / Time No Known Allergies Allergy Verified 02/01/25 04:05 Home Medications ?Medication ?Instructions ?Recorded ?Confirmed ?Type docosahexaenoic acid 200 mg 200 mg PO DAILY 06/30/24 02/01/25 History capsule ( DHA) ferrous sulfate 220 mg (44 mg 110 mg PO DAILY 12/23/24 02/01/25 History iron)/5 mL oral elixir Laboratory Tests 02/01/25 03:33 WBC 10.7 H K/mm3 (4.5-10.0) RBC 4.53 M/mm3 (4.2-5.4) Hgb 13.2 g/dL (12.0-15.0) Hct 39.9 % (37.0-47.0) MCV 88.1 fl (80-100) MCH 29.1 pg (26-34) MCHC 33.1 g/dl (32-36) RDW 15.2 H % (11.5-14.5) Plt Count 262 k/mm3 (150-375) MPV 10.4 fl (7.4-10.4) Immature Gran % (Auto) 0.6 H % (0-0.5) Neut % (Auto) 66.5 % (45.5-73.1) Lymph % (Auto) 24.5 % (18.3-44.2) Winkler % (Auto) 6.5 % (2.6-8.5) Eos % (Auto) 1.4 % (0-4.4) Baso % (Auto) 0.5 % (0.2-1.2) Lymph # (Auto) 2.61 K/mm3 (0.9-3.2) Winkler # (Auto) 0.7 H K/mm3 (0.1-0.6) Eos # (Auto) 0.2 K/mm3 (0-0.3) Baso # (Auto) 0.1 K/mm3 (0.0-0.1) Abs Immat Gran (auto) 0.06 H K/mm3 (0.00-0.031) Absolute Neuts (auto) 7.1 H K/mm3 (1.3-6.7) Absolute Nucleated RBC 0.000 K/mm3 (0.0-0.012) Nucleated RBC % 0.0 % (0.0-0.2) Patient hx anesthesia problems: none Family hx anesthesia problems: none Results Review: All pre-operative results and documents have been reviewed as part of the pre-operative evaluation. [facility] Surgical History Surgical History Hx of rotator cuff surgery Hx of section Family History Family History Mother Hypertension Father Diabetes mellitus Grandparent Diabetes mellitus Heart problem Social History Social History Smoking status: Never smoker Alcohol intake: never Substance use: never Do You Feel Safe in your Home?: Yes Lack of Transportation: No Lack of Food: Never True Current Housing: I Have Housing Concerned About Future Housing: No Difficulty Paying Gas/Electric Bills: No Difficulty Paying for Meds: No Currently Unemployed: No Education: Master's Degree or Higher Difficulty w/ Childcare or Family Care: No Spiritual care concerns: No Anes - Eval Final PreProcedure Day of Procedure 02/01/25 04:19 Heart: regular rate and rhythm Lungs: clear to auscultation and normal air movement Airway: Mallampati scale Neurological: alert and oriented ASA classification: II Anesthetic plan: proceed Anesthesia type and monitoring: regional epidural and standard monitoring Results Review: All pre-operative results and documents have been reviewed as part of the pre-operative evaluation. Informed Consent: The patient's anesthetic plan and its attendant risks and benefits were discussed with the patient/family/POA. Questions were solicited and answers provided to the satisfaction of the patient/family/POA.
[2025-02-01 04:38] LABS: Syphilis IgG/IgM Antibody Non-Reactive (Nonreactive)
[2025-02-01] MEDS: PHENYLEPHRINE 1,000 MCG/10 ML SYRINGE 100 MCG IV PUSH ×2 (05:25→05:33)
--- NOTE | 2025-02-01 06:13 | PM.IMHP ---
H&P: HPI History of Present Illness Date/Time: 02/01/25 06:13 Chief Complaint: Intrauterine at term Narrative: 29 yo who presents at 40w2d who presents in labor. Her is complicated by prior due to non-reassuring FHT. Review of Systems Cardiovascular: Cardiovascular: Denies chest pain, Denies leg edema, Denies palpitations, Denies dyspnea and Denies dyspnea on exertion Respiratory: Respiratory: Denies cough, Denies dyspnea and Denies dyspnea on exertion Gastrointestinal: Gastrointestinal: Denies abdominal pain, Denies constipation, Denies diarrhea, Denies nausea and Denies vomiting Genitourinary: Genitourinary: Denies hematuria, Denies urinary frequency, Denies dysuria, Denies pelvic pain, Denies urinary incontinence and Denies vaginal discharge Neurologic: Reports system reviewed and no additional complaints, except as documented Psychiatric: Psychiatric: Reports no additional psychiatric complaints Endocrine: Endocrine: Denies palpitations PMFSH Surgical History Surgical History Hx of rotator cuff surgery Hx of section Family History Family History Mother Hypertension Father Diabetes mellitus Grandparent Diabetes mellitus Heart problem Social History Social History Smoking status: Never smoker Alcohol intake: never Substance use: never Do You Feel Safe in your Home?: Yes Lack of Transportation: No Lack of Food: Never True Current Housing: I Have Housing Concerned About Future Housing: No Difficulty Paying Gas/Electric Bills: No Difficulty Paying for Meds: No Currently Unemployed: No Education: Master's Degree or Higher Difficulty w/ Childcare or Family Care: No Spiritual care concerns: No Meds Home Medications and Allergies Home Medications ?Medication ?Instructions ?Recorded ?Confirmed ?Type docosahexaenoic acid 200 mg 200 mg PO DAILY 06/30/24 02/01/25 History capsule ( DHA) ferrous sulfate 220 mg (44 mg 110 mg PO DAILY 12/23/24 02/01/25 History iron)/5 mL oral elixir Allergies Allergy/AdvReac Type Severity Reaction Status Date / Time No Known Allergies Allergy Verified 02/01/25 04:05 Vital Signs Vital Signs - 24 hr 02/01/25 02:58 02/01/25 03:16 02/01/25 03:17 Temperature 98.2 F Pulse Rate 86 Blood Pressure 118/78 Pulse Oximetry 98 Oxygen Delivery 02/01/25 03:22 02/01/25 03:27 02/01/25 03:42 Temperature Pulse Rate Blood Pressure Pulse Oximetry 99 99 97 Oxygen Delivery 02/01/25 03:47 02/01/25 03:48 02/01/25 03:52 Temperature Pulse Rate 75 Blood Pressure 114/80 Pulse Oximetry 98 99 Oxygen Delivery Room Air 02/01/25 03:57 02/01/25 03:58 02/01/25 03:58 Temperature Pulse Rate Blood Pressure Pulse Oximetry 99 100 100 Oxygen Delivery 02/01/25 04:02 02/01/25 04:07 02/01/25 04:12 Temperature Pulse Rate Blood Pressure Pulse Oximetry 99 100 99 Oxygen Delivery 02/01/25 04:17 02/01/25 04:22 02/01/25 04:27 Temperature 98.9 F Pulse Rate Blood Pressure Pulse Oximetry 100 99 99 Oxygen Delivery 02/01/25 04:28 02/01/25 04:29 02/01/25 04:31 Temperature Pulse Rate 91 94 84 Blood Pressure 115/72 115/79 108/63 Pulse Oximetry Oxygen Delivery 02/01/25 04:32 02/01/25 04:34 02/01/25 04:36 Temperature Pulse Rate 70 73 Blood Pressure 111/72 113/64 Pulse Oximetry 99 Oxygen Delivery 02/01/25 04:37 02/01/25 04:38 02/01/25 04:41 Temperature Pulse Rate 94 78 Blood Pressure 106/75 103/72 Pulse Oximetry 98 Oxygen Delivery 02/01/25 04:42 02/01/25 04:43 02/01/25 04:46 Temperature Pulse Rate 88 83 Blood Pressure 105/68 97/69 L Pulse Oximetry 99 Oxygen Delivery 02/01/25 04:47 02/01/25 04:49 02/01/25 04:51 Temperature Pulse Rate 83 72 Blood Pressure 98/57 L 97/66 L Pulse Oximetry 98 Oxygen Delivery 02/01/25 04:52 02/01/25 04:53 02/01/25 04:56 Temperature Pulse Rate 73 67 Blood Pressure 98/71 L 98/65 L Pulse Oximetry 99 Oxygen Delivery 02/01/25 04:57 02/01/25 04:58 02/01/25 05:01 Temperature Pulse Rate 68 64 Blood Pressure 100/66 97/65 L Pulse Oximetry 98 Oxygen Delivery 02/01/25 05:02 02/01/25 05:03 02/01/25 05:06 Temperature Pulse Rate 70 70 Blood Pressure 98/66 L 100/72 Pulse Oximetry 99 Oxygen Delivery 02/01/25 05:07 02/01/25 05:09 02/01/25 05:11 Temperature Pulse Rate 91 74 Blood Pressure 98/83 L 94/57 L Pulse Oximetry 98 Oxygen Delivery 02/01/25 05:12 02/01/25 05:17 02/01/25 05:21 Temperature Pulse Rate 76 Blood Pressure 86/52 L Pulse Oximetry 99 99 Oxygen Delivery 02/01/25 05:22 02/01/25 05:26 02/01/25 05:27 Temperature Pulse Rate 58 L Blood Pressure 92/55 L Pulse Oximetry 98 98 Oxygen Delivery 02/01/25 05:31 02/01/25 05:32 02/01/25 05:36 Temperature Pulse Rate 77 82 Blood Pressure 87/49 L 92/55 L Pulse Oximetry 99 Oxygen Delivery 02/01/25 05:37 02/01/25 05:41 02/01/25 05:42 Temperature Pulse Rate 87 Blood Pressure 92/56 L Pulse Oximetry 98 98 Oxygen Delivery 02/01/25 05:46 02/01/25 05:47 02/01/25 05:51 Temperature Pulse Rate 75 82 Blood Pressure 80/47 L 90/49 L Pulse Oximetry 98 Oxygen Delivery 02/01/25 05:52 02/01/25 05:56 02/01/25 05:57 Temperature Pulse Rate 93 Blood Pressure 106/64 Pulse Oximetry 99 100 Oxygen Delivery 02/01/25 06:01 02/01/25 06:02 02/01/25 06:06 Temperature Pulse Rate 76 76 Blood Pressure 96/50 L 100/54 L Pulse Oximetry 99 Oxygen Delivery 02/01/25 06:07 02/01/25 06:12 Temperature Pulse Rate Blood Pressure Pulse Oximetry 99 98 Oxygen Delivery Exam Const: General: no acute distress Eyes: EOM: EOMs intact bilaterally Neck: Neck: supple Thyroid: thyroid normal Chest: Breast/axilla inspection: normal inspection of the breasts Breast/axilla palpation: normal palpation of the breasts, normal palpation of the axillae and no axillary lymphadenopathy Resp: Effort & Inspection: normal respiratory effort Auscultation: clear to auscultation bilaterally Cardio: Rate: regular rate Rhythm: regular rhythm GI: Inspection: non-distended and other (Gravid) GI Palp: Yes Soft to palpation, No Tenderness to palpation present (GI) and No Guarding due to palpation present (GI) Auscultation: normal bowel sounds : Speculum Exam - Vagina: No vaginal bleeding OB/external & speculum: external exam normal; No vaginal bleeding Skin: General skin exam: normal color and no rashes or lesions noted Neuro: Cognition (Neuro): normal cognition Speech: normal speech Extrem: General: normal to inspection Psych: Mental Status: mental status grossly normal Affect: normal affect H&P: Results Labs Labs: Short CBC 02/01/25 Range/Units 03:33 WBC 10.7 H (4.5-10.0) K/mm3 Hgb 13.2 (12.0-15.0) g/dL Hct 39.9 (37.0-47.0) % Plt Count 262 (150-375) k/mm3 Assessment and Plan Assessment and plan (1) : Code(s): Z34.90 - Encounter for supervision of normal , unspecified, unspecified trimester Status: Acute Assessment and Plan: 29 yo who presents at 40w admit to L&D routine admission orders labs reviewed Rh neg, will need rhogam continuos EFM may have epidural PRN (2) History of section complicating : Code(s): O34.219 - Maternal care for unspecified type scar from previous delivery Status: Acute
--- NOTE | 2025-02-01 06:18 | PM.OBPNLAB ---
Pain Control Date/time seen: 02/01/25 06:18 Pain control: epidural Pelvic Exam Dilation (cm): 5 Effacement (%): 70 station: -1 Amniotic membrane status: Intact Contractions Monitor mode: External Status status: Category ll Assessment and Plan Assessment: active labor Plan: Comments: upon entering the room the FHT were noted to be decelerated into the 70s. Patient was re-positioned to the left and right sides as well as [id number]. FHT were noted to be bradycardic for several minutes despite repositioning. cvx was checked and found to be remote from delivery. Plan of care discussed with patient. Recommended proceeding with delivery due to non-reassuring FHT remote from delivery. Risks, benefits, alterantives reviewed.
[2025-02-01] MEDS: ceFAZolin 2 GM in SODIUM CHLORIDE 0.9% IV 50 ML 100 ML IVPB (06:20)
[2025-02-01] MEDS: AZITHROMYCIN IV 500 MG in SODIUM CHLORIDE 0.9% IV 250 ML IVPB (06:30)
--- NOTE | 2025-02-01 06:45 | S_PTH ---
PATIENT: Yecenia Escobedo LOC: [facility] U#:[id number] AGE/SX: 29/F ROOM: 292 RE02/01/[address]: Markell Brown MD : 1995 BED: 00 DIS: 02/03/2025 SPEC #: [id number] RECD: 02/01/25 08:52 STATUS: VICTORIA REQ #: [id number] DELISA: 02/01/25 06:[address]: Brendan Boothe DEPT: [facility] Surgical RECD BY: Parish Rucker ENTERED: 02/01/25 08:52 SP TYPE: Surgical OTHR DR: Markell Brown MD UNKNOWN,DOCTOR Tissues: A - Placenta Procedures: Hematoxylin and Eosin Stain Gross and Microscopic Level 5
--- NOTE | 2025-02-01 07:10 | P.PCNOB_ITS ---
OB - Delivery Note Procedure Delivery date: 02/01/25 Pre-op diagnosis: Non-Reassuring Status Post-op Diagnosis: Same Induction method: None Delivery monitor: External FHT and External Uterine Prior to decision for section, ACOG/SMFM labor guidelines were considered and discussed with the patient and staff. Decision made to proceed with the section.: Yes Procedure Performed: Repeat Secondary branch: low cervical, transverse Surgeon: Brendan Boothe MD Anesthesia type: Epidural Description of Procedure/Findings: The patient was taken to the operating room. Epidrual was found to be adequate at a t-10 level. The patient was placed in a supine position with a slight left lateral tilt. A hernandez catheter was placed with return of clear urine. A Bovie grounding pad was placed. Surgical prep was performed and surgical drapes were placed. A surgical time out was performed. A Pfannenstiel skin incision was then made with the scalpel and carried through to the underlying layer of fascia. The fascia was then incised in the midline and the incision was extended laterally with the Yarbrough scissors. The superior aspect of the fascia was then grasped with the Sabrina clamps, elevated, and the underlying rectus muscles dissected off bluntly and sharply. Attention was then turned to the inferior aspect of this incision which, in a similar fashion, was grasped, tented up with the Sabrina clamps, and the rectus muscles dissected off both bluntly and sharply. The rectus muscles were then in the midline. The peritoneum was identified and entered bluntly. The peritoneal incision was then extended superiorly and inferiorly with good visualization of the bladder. The vesico-uterine serosa was identified and dissected to create a bladder flap. A ring retractor was placed for better visualization. The uterus was inspected for rotation. A low-transverse uterine incision was made sharply with the scalpel and entry was made into the uterine cavity. An amniotomy was made and copious amounts of clear fluid we re noted on return. The uterine incision was extended laterally bluntly. The bladder blade was removed and the fetus was delivered atraumatically. The nose and mouth were suctioned with a bulb syringe. The umbilical cord was clamped twice and cut. The infant was handed off to the waiting staff. At the time of the delivery, the had good color, tone and grimace. The infant cried with minimal stimulation. A second segment of umbilical cord was clamped and cut for cord blood gasses. Cord blood was collected for determination of the blood type and for direct Arnold. The placenta was delivered spontaneously without difficulty. The placenta appeared grossly normal and complete. The uterus was exteriorized and cleared of all clots and debris. The uterine incision was repaired using 0-monocryl suture in a running fashion. A second layer of 0 Monocryl suture was used in an imbricating fashion to obtain excellent hemostasis and uterine strength. The uterine closure was inspected for hemostasis. The posterior aspect of the uterus and the broad ligaments were inspected and the posterior cul-de-sac cleared of fluid and blood clots. The uterine closure was again inspected and found to be hemostatic. The uterus was returned to the abdominal cavity. The pericolic gutters were inspected and were cleared of all blood clots and debris. The uterine closure was then re inspected to ensure hemostasis as were all subfascial tissues. The peritoneum was closed using 3-0 vicryl in a running fashion. The fascia was reapproximated with 0-vicryl in a running fashion. The subcutaneous tissue was irrigated and hemostasis achieved with electrocautery. The skin was closed with 4-0 vicryl in a subcuticular fashion. A sterile dressing was applied to the wound. The patient tolerated the procedure well. Sponge, lap and needle counts were correct times three. The patient was taken to recovery in stable condition and without anticipated complications. Specimen: Yes Estimated Blood Loss: 405 Urine Output: 150 Drains: No Packing: No Pathology: None sent Complications: No immediate complications Condition: Stable Disposition: Floor Baby Date of : 02/01/25 Gestational Age by Date: 40 Infant gender: Female presentation: vertex position: Right Occiput Anterior Placenta delivery description: Spontaneous Cord Vessel Description: 3 Vessels and Nuchal Cord
[2025-02-01] MEDS: KETOROLAC 15 MG/ML VIAL (*BKC) IV PUSH ×3 (07:59→19:55)
[2025-02-01] MEDS: ACETAMINOPHEN 500 MG TABLET 1000 MG PO ×3 (08:00→19:55)
[2025-02-01] MEDS: OXYTOCIN 30 UNITS/NS 500 ML 30 UNITS/500 ML BAG 125 UNITS IV CONT (08:02)
[2025-02-01] MEDS: LORATADINE 10 MG TABLET PO (08:18)
--- NOTE | 2025-02-01 09:41 | OBPPTRN ---
Patient transferred to post room #292 via stretcher. Support person present. Oriented to unit, room, information board, rooming in, admission packet and security measures. Patient verbalizes understanding.
[2025-02-01] MEDS: LIDOCAINE 5% PATCH 1 PATCH TRANSDERM (10:41)
[2025-02-01] MEDS: SIMETHICONE 80 MG TAB.CHEW PO ×2 (12:46→16:42)
[2025-02-01] MEDS: DEXTROSE 5%/0.45% SOD CHL 1,000 ML 125 ML IV CONT (12:52)
--- NOTE | 2025-02-01 13:05 | PHAR ---
Home supply of with CHARITO MCINTOSH okayed to use. Job unable to be identified except by bottle label. OB2 in possession of bottle
[2025-02-01] MEDS: [UNRECOGNIZED DRUG - REMARK] 1 EACH XX (13:52)
[2025-02-01] MEDS: ONDANSETRON INJ 4 MG/2 ML VIAL IV PUSH (14:51)
--- NOTE | 2025-02-01 16:13 | PC.NURSE ---
1100 Introductions were made, then consulted with patient to assess needs related to . Discussed with mother her?plans to feed?her infant and the?experience so far. Per mother, the first feeding went very well, the latch felt great and then the second feeding, the latch didn't feel as great. Encouraged mother to call out with the next feeding to assess the latch and feeding, mother agreed. Resources provided for inpatient and outpatient services with the feeding sheet, mom/baby guide and name written on the communication board. Mother voiced understanding of information and will call if there is a request for assistance. Reported to the Primary RN. [id number] Mother called CLC to the room, we reviewed working with the infant, supporting breast, protecting her nipples with an optimal deep latch, good positioning, and good hand washing. Encouraged understanding the benefits of skin to skin, responding to feeding cues, frequencies of feeding 8-12 times in 24 hours (approximately 2-3 hours), duration of feedings, milk production, intake/output feeding sheet and signs of adequate intake encouraging swallowing at the breast. Reviewed positioning and alignment, supporting breast, off-centered (asymmetrical latch) and leading with the chin with big, open, wide gape. Infant latched optimally to the [left] breast in [cradle/laid-back] position. Education given to the mother of how to visualize the suckling (with good rocking jaw motion) swallows (dropping of the lower jaw) and how to listen for drinking at the breast (the ka sound). The infant was [able] to maintain latch without discomfort to mother. Nipple care reviewed with optimal latch, good positioning and using clean hands when touching her breast. Resources used to facilitate learning were used from the [visual handouts/ tool/mom and baby guide]. Mother voiced understanding of the education shared, to call for assistance if the infant does not latch or if there is discomfort with . Reported to the Primary RN.
[2025-02-01] MEDS: DOCUSATE SODIUM 100 MG CAPSULE PO (16:42)
[2025-02-02] MEDS: ACETAMINOPHEN 500 MG TABLET 1000 MG PO ×4 (02:10→20:15)
[2025-02-02] MEDS: KETOROLAC 15 MG/ML VIAL (*BKC) IV PUSH (02:10)
[2025-02-02 04:30] VITALS: BP 90/66; PULSE 75; RESP 16; TEMP 36.7; O2SAT 98
[2025-02-02 05:28] LABS: Hematocrit 32.4 % (37.0-47.0); Hemoglobin 10.4 g/dL (12.0-15.0); Immature Granulocyte Percent A 0.6 % (0-0.5); Lymphocytes Absolute Auto 2.45 K/mm3 (0.9-3.2); Mean Corpuscular HGB Conc 32.1 g/dl (32-36); Mean Corpuscular Hemoglobin 29.1 pg (26-34); Mean Corpuscular Volume 90.5 fl (80-100); Nucleated Red Blood Cells Absolute Auto 0.000 K/mm3 (0.0-0.012); Nucleated Red Blood Cells Perc 0.0 % (0.0-0.2); Platelet Count Result 259 k/mm3 (150-375); Red Blood Count 3.58 M/mm3 (4.2-5.4); White Blood Count 9.8 K/mm3 (4.5-10.0)
[2025-02-02 08:10] VITALS: BP 95/51; PULSE 76; RESP 18; TEMP 37.2; O2SAT 96
[2025-02-02] MEDS: SIMETHICONE 80 MG TAB.CHEW PO ×3 (08:15→17:17)
[2025-02-02] MEDS: DOCUSATE SODIUM 100 MG CAPSULE PO ×2 (08:15→17:17)
[2025-02-02] MEDS: IBUPROFEN 600 MG TABLET PO ×3 (08:15→20:15)
[2025-02-02] MEDS: DOCOSAHEXAENOIC ACID 200 MG 200 EACH PO (08:15)
[2025-02-02] MEDS: FERROUS SULFATE LIQUID 325 MG/7.4 ML ELIXIR 110 MG PO (08:18)
--- NOTE | 2025-02-02 10:13 | P.PNOB_ITS ---
OB - PN: Subj Subjective Date/time seen: 02/02/25 10:13 Interval history: Pain controlled. Positive flatus. Denies leg pain. Lochia decreasing. Patient comments: tolerating diet OB - PN: Obj Data Labs 02/02/25 04:34 Labs: Laboratory Results - last 24 hr 02/02/25 04:34 WBC 9.8 RBC 3.58 L Hgb 10.4 L Hct 32.4 L MCV 90.5 MCH 29.1 MCHC 32.1 RDW 15.7 H Plt Count 259 MPV 10.2 Immature Gran % (Auto) 0.6 H Neut % (Auto) 67.1 Lymph % (Auto) 25.0 [place] % (Auto) 6.2 Eos % (Auto) 0.7 Baso % (Auto) 0.4 Lymph # (Auto) 2.45 [place] # (Auto) 0.6 Eos # (Auto) 0.1 Baso # (Auto) 0.0 Abs Immat Gran (auto) 0.06 H Absolute Neuts (auto) 6.6 Absolute Nucleated RBC 0.000 Nucleated RBC % 0.0 OB - PN A/P Assessment and Plan (1) Delivery by section: Status: Acute Assessment and Plan: POD1. Doing well. Routine post op care. Time Spent With Patient Time: Total time spent is greater than 50% in coordination of care (as documented) at patient's floor/unit and/or counseling patient: Exam 2 Const: General: comfortable and no acute distress Resp: Effort & Inspection: normal respiratory effort GI: Other: incision intact no drainage Psych: Mental Status: mental status grossly normal Affect: normal affect
--- NOTE | 2025-02-02 14:00 | PC.NURSE ---
Consulted with patient to assess if she had any needs related to . Discussed with mother her?plans to feed?her infant and the?experience so far. Per mother with her first baby she had a painful latch and decided to only pump and bottle feed. Per mother she feels that this experience is going the same way and would like to no longer put infant to the breast for feedings, she requested Similac formula and has brought her own Spectra breast pump that she is very familiar with and did not need any assistance. Patient was advised to pump for comfort and nipple stretching/stimulation for adequate milk production every 3 hours (8 times in 24 hours) 1-2 times at night. Parents are encouraged to record the pumping schedule on the feeding sheet.?Mother voiced understanding of the education shared along with mom/baby guide and the pump measurement, flange fit handout for additional resource information. Resources provided for inpatient and outpatient services with the feeding sheet, mom/baby guide and name written on the communication board. Mother voiced understanding of information and will call if there is a request for assistance. Reported to the Primary RN.
[2025-02-02 20:20] VITALS: BP 100/62; PULSE 81; RESP 16; TEMP 36.2; O2SAT 95
[2025-02-03] MEDS: IBUPROFEN 600 MG TABLET PO ×2 (02:20→08:40)
[2025-02-03] MEDS: ACETAMINOPHEN 500 MG TABLET 1000 MG PO ×2 (02:20→08:41)
[2025-02-03 08:40] VITALS: BP 99/69; PULSE 76; RESP 16; TEMP 36.8; O2SAT 98
[2025-02-03] MEDS: SIMETHICONE 80 MG TAB.CHEW PO (08:40)
[2025-02-03] MEDS: DOCUSATE SODIUM 100 MG CAPSULE PO (08:41)
--- NOTE | 2025-02-03 10:54 | WPDANLDPN2 ---
Anes-Prog Note L&D Date/Time: 02/03/25 10:54 Comfortable throughout: section Neuraxial method: spinal Epidural/Spinal procedure site: clean & non-tender Neuro status: Neuro function grossly intact. Cardiovascular status: normal Respiratory status: normal Airway patency: baseline Mental status: baseline Post-Op hydration status: normal Vital Signs: Last Vital Signs Temp 36.8 C 02/03/25 08:40 Pulse 76 02/03/25 08:40 Resp 16 02/03/25 08:40 BP 99/69 L 02/03/25 08:40 Pulse Ox 98 02/03/25 08:40 O2 Del Method Room Air 02/02/25 20:20 Pain score (VAS): 04/30 Post-procedural complaints: none Patient feedback: Patient satisfied with anesthetic care.
--- NOTE | 2025-02-03 10:54 | WPDANLDNPN2 ---
Anes-Prog Note L&D-Neuraxial Date/Time: 02/03/25 10:54 Neuraxial medications: intrathecal PF morphine Opiod-related complaints: none Patient feedback: Patient satisfied with post-operative pain management.
--- NOTE | 2025-02-03 11:08 | PC.NURSE ---
Consulted with mother concerning needs and she shared her ability to independently use her breast pump without pain and bottle feed her infant. Mother is feeding appropriately for growth of and understands stimulating to eat if needed. has had appropriate feedings in the last 24 hours meets the outcomes for weight, output, blood sugar and jaundice at this time. Reinforced understanding of milk production, transition of milk, signs of adequate intake, transition of stool, prevention/relief of engorgement, plugged ducts, mastitis, watching for feeding cues, community resources, and when to call a provider using the resource of the feeding sheet along with the mom and baby guide. Mother voiced understanding of the information shared, is confident to continue effectively feeding her at home, when to call for assistance, denies any additional assistance or education at this time. Reported to the Primary RN.
[2025-02-04 09:11] VITALS: BP 102/67; PULSE 67; RESP 18; TEMP 37; O2SAT 100
--- NOTE | 2025-02-04 11:01 | PM.OBDSVD ---
DS: Admitting Diagnosis Discharge Date 02/03/25 Admitting Diagnosis previous intrauterine at term DS: Discharge Diagnosis Discharge Diagnosis (1) delivery delivered: Code(s): O82 - Encounter for delivery without indication Status: Acute OB - DS: Summary OB Procedures : None OB Procedures Intrapartum: OB Procedures: : None Peripartum Data Infant Delivery Method: Section Procedures: Procedures Operation Date: 02/01/25 06:25 Actual Procedure Side Surgeon p Section Bilateral Brendan Boothe MD complications: none Status at Discharge Functional status at discharge: independent ambulation Overall status at discharge: patient is progressing back to baseline Time Spent with Patient Time attestation: Total time spent providing and/or coordinating discharge services: Time spent: Less than 30 minutes Exam Const: General: comfortable and no acute distress Resp: Effort & Inspection: normal respiratory effort Auscultation: clear to auscultation bilaterally Cardio: Rate: regular rate GI: Inspection: non-distended GI Palp: Yes Soft to palpation, No Firmness to palpation present (GI), Yes Tenderness to palpation present (GI) (mild tenderness over incision ) and No Guarding due to palpation present (GI) Auscultation: normal bowel sounds Psych: Appearance: grossly normal Mental Status: mental status grossly normal DS: Data Data Completed and Pending Completed studies during hospitalization: Pending at discharge 02/01/25 06:45 Surgical [PTH] Routine Discharge Plan Discharge Attending physician on discharge: Markell Brown Consulting providers: Brendan Boothe; Mayank Mendieta; Madyson Arredondo Discharging Clinician: Markell Brown Anticipated Discharge Date/Time: 02/03/25 12:00 Patient Disposition: Home Activity: may shower, no straining, may drive after 2 weeks, follow weight bearing status and pelvic rest Diet: regular Discharge Instructions: Education: Mom and Baby Guide Given to: Mother Follow-Up: Call your delivering provider's office for an appointment to be seen in: call OB for follow up Mom and baby should come to the [facility] for the follow-up appointment. Appointment Date/Time: February 04, 2025 at 9:00 am What to expect at your follow-up visit: Blood Pressure Check Physical Assessment Call [phone] if you are unable to keep your appointment time. BREAST CARE: * Wear a snug supportive bra. * For engorgement discomfort: Breast Feeding: * Apply warm moist washcloths * Express milk as needed to relieve engorgement * Wear loose clothing Bottle Feeding: * May apply ice packs * For sore nipples: * Identify correct latch-on * Apply warm moist washcloths before and after nursing * Air dry nipples after nursing * May apply Lansinoh cream to nipples ABDOMINAL INCISION: * Allow incision to air dry * Do NOT use lotions for powders on your incision * When showering, allow soap and water to run over the incision, but do not wash incision PERINEAL CARE: * Until bleeding stops, use your gume bottle after urinating * Change your pad frequently throughout the day * You may take sitz baths several times a day (fill your bathtub with warm water and soak for 20 minutes.) Do NOT bathe in the water * No tub baths until seen by your physician - You may shower ACTIVITY: * Rest as much as possible. * Do not exercise or lift anything heavier than your baby (such as laundry or other children.) * Avoid stairs or driving as much as possible. * Do not put anything into the vagina. No douching, tampons, or sexual activity until seen by physician. NOTIFY PHYSICIAN IF YOU HAVE ANY QUESTIONS OR IF ANY OF THE FOLLOWING SYMPTOMS OCCUR: * If your incision becomes red, swollen, or more painful than what you have experienced in the hospital. * If your vaginal bleeding becomes foul smelling. * If your vaginal bleeding becomes more heavy than a period or if your bleeding changes from pink to bright red. However, you may pass an occasional walnut-sized clot once or twice for the first week . * If you experience a sharp, shooting pain in you calves. * If you discover a hard, reddened area on your breast or if you experience flu-like symptoms. DIET: * Eat regular, well-balanced meals. * Drink plenty of fluids daily. If , drink to thirst. Patient Instructions: Antibiotic Form Patient Language: Italian Stand Alone Forms: General Discharge Information Follow-up/Referrals: Markell Brown MD [Physician, HOUSE SUPERVISOR] - 2 Weeks Referral Note: Call for appointment Discharge Medications: New ibuprofen 600 mg Tablet 600 mg PO Q6HR Qty: 30 0RF oxycodone 5 mg Tablet 5 mg PO Q4H PRN (Reason: Pain Rated 4-6) Qty: 20 0RF ferrous sulfate 220 mg (44 mg iron)/5 mL Elixir 110 mg PO DAILY Qty: 473 0RF Continued DHA 200 mg capsule 200 mg PO DAILY ferrous sulfate 220 mg (44 mg iron)/5 mL elixir 110 mg PO DAILY Date of admission: 02/01/25 02:39 Primary Care Provider: UNKNOWN,DOCTOR Admitting Provider: Markell Brown Attending physician on admission: Markell Brown Condition: Stable
== END 2025-02-03 13:10 | disposition home or self-care (01) | DRG 787 ==
LOC: ANHLDR 04:20 → ANHOB2 09:59
PROVIDERS: Student in an Organized Health Care Education/Training Program; Admitting Provider Obstetrics & Gynecology; Visit Provider Obstetrics & Gynecology
PROC: 10D00Z1 Extraction of Products of Conception, Low, Open Approach (ICD-10-PCS; CPT 59514; principal; 2025-02-01 06:25)
DX: O76 Abnormality in fetal heart rate and rhythm complicating labor and delivery (principal); O36.0930 Maternal care for other rhesus isoimmunization, third trimester, not applicable or unspecified; O34.211 Maternal care for low transverse scar from previous cesarean delivery; Z37.0 Single live birth; Z3A.40 40 weeks gestation of pregnancy; O26.893 Other specified pregnancy related conditions, third trimester; Z67.91 Unspecified blood type, Rh negative
CPT/HCPCS: 36415; 85025; 86593; 86850; 86900; 86901; 88307; J0690; A9270; J0456; J1100; J1885; J2004; J2274; J2371; J2405; J2590; J2795; J7050; J7120